=== PATIENT | female | born 1980 | race Caucasian/White ===

== ENCOUNTER 2019-11-14 09:47 | Emergency (ER) | payer OTHER ==
[~2019-11-14] VITALS: Ht 154.9 cm; Wt 77.3 kg
[2019-11-14] MEDS ORDERED: [UNRECOGNIZED DRUG - REMARK] PO (10:00)
[2019-11-14] MEDS ORDERED: IBUPROFEN 600 MG TABLET PO ONE (11:00)
[2019-11-14] MEDS ORDERED: LIDOCAINE 5% TRANSDERMAL PATCH TD ONE (11:00)
[2019-11-14] MEDS ORDERED: METHOCARBAMOL 500 MG TABLET PO ONE (11:00)
[2019-11-14 13:08] VITALS: BP 119/82
== END 2019-11-14 13:40 | disposition home or self-care (01) ==
LOC: EMS 09:52
DX: M54.2 Cervicalgia (principal); R03.0 Elevated blood-pressure reading, without diagnosis of hypertension; M25.552 Pain in left hip; M25.522 Pain in left elbow; W01.0XXA Fall on same level from slipping, tripping and stumbling without subsequent striking against object, initial encounter; Y93.89 Activity, other specified; Y92.89 Other specified places as the place of occurrence of the external cause; Y99.8 Other external cause status
CPT/HCPCS: 72040